=== PATIENT | female | born 1980 | race Caucasian/White ===

== ENCOUNTER 2016-12-04 20:36 | Emergency (ER) | payer SELFPAY ==
[~2016-12-04] VITALS: Ht 160 cm; Wt 65.0 kg
[2016-12-04 20:40] VITALS: Ht 160 cm; Wt 65.0 kg
[2016-12-04] MEDS ORDERED: ERYTOPOI LEFT EYE (21:23)
--- NOTE | 2016-12-04 21:27 | ERD ---
ER Documentation Chief Complaint Date/Time DATE: 12/04/16 TIME: 21:24 Chief Complaint left eye redness since a soccer ball accidentally hit left eye, 1 week ago HPI This is a 36-year-old female who 1 week ago was hit in the face over the left eye with a soccer ball. There is no loss of consciousness, she had no nausea vomiting dizziness or photosensitivity. She is here because she developed redness in the left eye as well as some irritation. She has no crusting or purulent drainage in the morning. No visual changes. No photosensitivity. ROS All systems reviewed and are negative except as per history of present illness. Medications Home Meds Active Scripts Erythromycin* (Erythromycin* Ophthalmic) 1 Applic Oint, 1 APPLIC LEFT EYE QID for 7 Days, EA Prov:CHERIE TREJO PA-C 12/04/16 Allergies Allergies: Coded Allergies: No Known Allergy (Unverified , 12/04/16) PMhx/Soc Hx Alcohol Use: No Hx Substance Use: No Hx Tobacco Use: No Smoking Status: Never smoker FmHx Family History: No diabetes Physical Exam Vitals Vital Signs Date Time Temp Pulse Resp B/P Pulse Ox O2 Delivery O2 Flow Rate FiO2 12/04/16 20:40 98.4 91 20 164/83 98 Physical Exam Const: [] General: well developed, well nourished, alert, nontoxic, no distress Head: normocephalic, atraumatic Eyes: PERRL, left conjunctiva is injected, extraocular movements intact, no periorbital swelling or tenderness, visual acuity: Left eye 20/40, right eye 20/ 50 and together 20/50 Neck: Supple, nontender, no lymphadenopathy, no midline tenderness Respiratory: Clear to auscaultation bilaterally, speaks in full sentences, no use of accesory muscles or labored breathing, no rales, ronchi, or wheezing Cardiovascular: RRR, No murmurs Procedures/MDM Patient was hit in the eye with a soccer ball a week ago. She has no headache or loss of consciousness, no nausea vomiting. She developed irritation and redness of the left eye. She is discharged with erythromuycin opthalmic ointment. Recommended this patient follow up with her primary care doctor within 48 hours or return to the emergency room for any worsening of symptoms. However this time I do believe there is suitable for outpatient management. I answered all their questions and they agreed with the plan and were discharged home. Departure Diagnosis: Primary Impression: Conjunctivitis Condition: Stable Patient Instructions: Conjunctivitis, Non-Specific Additional Instructions: Call your primary care doctor TOMORROW for an appointment during the next 1-2 days.See the doctor sooner or return here if your condition worsens before your appointment time. CHERIE TREJO PA-C Dec 04, 2016 21:27
== END 2016-12-04 21:29 | disposition home or self-care (01) ==
LOC: FTE 20:36
DX: H10.9 Unspecified conjunctivitis (principal)
CPT/HCPCS: 99283